=== PATIENT | female | born 1980 | race Caucasian/White ===

== ENCOUNTER 2021-01-06 00:31 | Inpatient (IN) | payer MEDICAID ==
[2021-01-06] MEDS ORDERED: Nalbuphine 10 MG/1 ML Vial IVPUSH PRN (01:13)
[2021-01-06] MEDS ORDERED: Calcium Carbonate 500 MG Tab.Chew PO PRN (01:13)
[2021-01-06] MEDS ORDERED: Ondansetron 4 MG/2 ML SDV IVPUSH PRN (01:13)
[2021-01-06] MEDS ORDERED: Sodium Chloride 0.9% 10 ML Syringe FLUSH PRN (01:13)
[2021-01-06] MEDS ORDERED: Oxytocin/Lactated Ringers 10 UNIT/1,000 ML BAG IV SCH ×2 (01:15)
[2021-01-06] MEDS: Lactated Ringers 1,000 ML IV SCH ×3 (01:30→02:44)
[2021-01-06] MEDS ORDERED: fentaNYL 100 MCG/2 ML SDV EPIDUR PRN (01:49)
[2021-01-06] MEDS ORDERED: diphenhydrAMINE 50 MG/ML SDV IVPUSH PRN (01:49)
[2021-01-06] MEDS ORDERED: ePHEDrine 50 MG/ML SDV IVPUSH PRN (01:49)
--- NOTE | 2021-01-06 02:09 | PCM.LDHP ---
L&D History of Present Illness - General Date of Service: 01/06/21 Admit Problem/Dx: Patient Status Order with Admit Dx/Problem 01/06/21 01:11 Patient Status [ADT] Routine 01/06/21 01:13 Patient Status [ADT] Routine Admission Diagnosis/Problem Admission Diagnosis/Problem Source of Information: Patient History Limitations: Reports: No Limitations - History of Present Illness Introduction:: Corin Arrington is a 40-year-old G1, P0 at 40 weeks 0 days (CHRISTOFER 01/06/2021) by an 8-week ultrasound who presents with contractions and possible rupture membranes. She is not completely certain when her water may have broken but thinks it potentially could have been in the design drafter of 01/05/2021. She had persistent mucoid discharge throughout the day of 01/05/2021. She started to have increased amounts of contractions around suppertime when they were around 10 minutes apart. She continued to have contractions throughout the evening until she went to bed when they became stronger and closer together. She is uncertain how far apart they are at this time and feels like they are occurring constantly and not really letting up. She states that it is quite painful for the contractions at this time. She reports good movement. Timing/Duration: Reports: constant/continuous (Contractions that she is uncertain how far apart they are at this time), getting worse (Reports the contractions have been getting worse since starting around 6 PM on 01/05/2021) Location, : Reports: Lower back, Pelvic, Uterus Quality: Reports: Pressure, Throbbing Severity: Severe Associated Symptoms: Reports: vaginal discharge (Mucoid and watery discharge throughout the day of 01/05/2021). Denies: vaginal bleeding Present Illness Comments:: Corin Arrington is a 40-year-old G1, P0 at 40 weeks 0 days (CHRISTOFER 01/06/2021) by a 8-week ultrasound who presents with contractions and leaking of fluid. She has had routine care with Dr. Marino starting at 8 weeks gestational age. Her has been overall uncomplicated. She received the flu shot on 08/20/2020. She did not receive Tdap during . Her was overall uncomplicated. Her is complicated by: * Advanced maternal age, negative prequel testing in early * echogenic focus noted in the left ventricle that was stable throughout the on ultrasound * pyelectasis noted on initial anatomy ultrasound with resolution on repeat ultrasound EMT P history G1: Current labs Blood type: A+ Antibody screen: Negative First trimester hematocrit/hemoglobin: 40.9%/13.3 on 06/01/2020 Platelets: 325 on 06/01/2020 Pap smear: Negative with negative HPV on 06/09/2020 Urine culture: Negative Rubella status: Immune Hepatitis B surface antigen: Negative RPR: Negative HIV: Negative Gonorrhea: Negative Chlamydia: Negative Genetic testing: Normal prequel testing Anatomy ultrasound: Overall normal anatomy ultrasound, echogenic focus in the left ventricle, stable on repeat ultrasound, borderline right pyelectasis with normal renal pelvis on repeat ultrasound, otherwise normal anatomy 40th percentile on 11/11/2020, no placenta previa One hour glucose tolerance test: 113 Second trimester hematocrit/hemoglobin: 35.4%/11.3 on 10/07/2020 Platelets: 233 on 10/07/2020 GBS status: Negative on 11/30/2020 - Related Data Allergies/Adverse Reactions: Allergies Allergy/AdvReac Type Severity Reaction Status Date / Time No Known Allergies Allergy Verified 01/06/21 02:09 Past Medical History - Past Health History Medical/Surgical History: Denies Medical/Surgical History - Past Surgical History HEENT Surgical History: Reports: None GI Surgical History: Reports: None Female Surgical History: Reports: None Social & Family History - Tobacco Use Tobacco Use Status *Q: Never Tobacco User - Tobacco Core Measures Tobacco Use/Smoking Within Last 30 Days: No Smokeless Tobacco Use in Last 30 Days: No - Alcohol Use Alcohol Use History: No - Recreational Drug Use Recreational Drug Use: No Drug Use in Last 12 Months: No - Living Situation & Occupation Living situation: Reports: Single, with Significant Other Occupation: Employed H&P Review of Systems - Review of Systems: Review Of Systems: See Below General: Denies: Fever, Chills, Malaise, Weakness, Fatigue HEENT: Denies: Headaches, Rhinitis, Post Nasal Drip, Sinus Congestion, Sore Throat, Visual Changes Pulmonary: Denies: Shortness of Breath, Wheezing, Pleuritic Chest Pain, Cough Cardiovascular: Denies: Chest Pain, Palpitations, Dyspnea on Exertion, Orthopnea Gastrointestinal: Reports: Diarrhea (With contractions that started around suppertime). Denies: Abdominal Pain, Constipation, Nausea, Vomiting Genitourinary: Denies: Dysuria, Frequency, Burning, Pain, Urgency Musculoskeletal: Reports: Back Pain (Hip and pelvic pain of ) Skin: Denies: Rash, Lesions Psychiatric: Denies: Depression, Anxiety L&D Exam - Exam Exam: See Below - OB Specific Contraction Duration (sec): 60-75 Contraction Frequency (min): 2-5 Contraction Intensity: Strong Movement: Active Heart Tones: Present Heart Tones per Min: 125 (+15 x 15 accelerations, 1 variable deceleration at 0100) Heart Rate (FHR) Variability: Moderate (6-25 bmp) Presentation: Vertex Estimated Weight: 7.5-8 lbs by Asad's - Groves Score Groves Score Cervix Position: Anterior Groves Score Consistency: Soft Groves Score Effacement: >80% (90%) Groves Score Dilation: > 5 cm (5 cm) Groves Score Infant's Station: -1 ,0 (0) Groves Score Total: 12 - Exam General: Alert, Oriented HEENT: Conjunctiva Clear, EOMI Neck: Supple, Trachea Midline Lungs: Clear to Auscultation, Normal Respiratory Effort Cardiovascular: Regular Rate, Regular Rhythm GI/Abdominal Exam: Soft, Non-Tender, No Distention, Other (Gravid). No: Guarding, Rigid, Rebound Extremities: Normal Inspection, No Pedal Edema Skin: Warm, Dry, Intact Psychiatric: Alert, Normal Affect, Normal Mood - Patient Data Lab Results Last 24 hrs: Laboratory Results - last 24 hr 01/06/21 01/06/21 Range/Units 01:00 01:27 WBC 14.34 H (3.98-10.04) K/mm3 RBC 4.23 (3.98-5.22) M/mm3 Hgb 13.2 D (11.2-15.7) gm/dl Hct 40.2 (34.1-44.9) % MCV 95.0 H (79.4-94.8) fl MCH 31.2 (25.6-32.2) pg MCHC 32.8 (32.2-35.5) g/dl RDW Std Deviation 45.3 (36.4-46.3) fL Plt Count 232 (182-369) K/mm3 MPV 10.5 (9.4-12.3) fl Neut % (Auto) 71.5 H (34.0-71.1) % Lymph % (Auto) 14.4 L (19.3-51.7) % [place] % (Auto) 12.1 (4.7-12.5) % Eos % (Auto) 1.4 (0.7-5.8) Baso % (Auto) 0.2 (0.1-1.2) % Neut # (Auto) 10.24 H (1.56-6.13) K/mm3 Lymph # (Auto) 2.07 (1.18-3.74) K/mm3 [place] # (Auto) 1.74 H (0.24-0.36) K/mm3 Eos # (Auto) 0.20 (0.04-0.36) K/mm3 Baso # (Auto) 0.03 (0.01-0.08) K/mm3 Membrane Rupture Positive H Result Diagrams: 01/06/21 01:27 - Problem List (1) 40 weeks gestation of SNOMED Code(s): 81487728 ICD Code: Z3A.40 - 40 WEEKS GESTATION OF Status: Acute Current Visit: Yes (2) Advanced maternal age, primigravida SNOMED Code(s): 95811561 ICD Code: O09.519 - SUPERVISION OF ELDERLY PRIMIGRAVIDA, UNSPECIFIED TRIMESTER Status: Acute Current Visit: Yes (3) Echogenic intracardiac focus of fetus on ultrasound SNOMED Code(s): 978034454 ICD Code: O28.3 - ABNORMAL ULTRASONIC FINDING ON SCREENING OF MOTHER Status: Acute Current Visit: Yes Problem List Initiated/Reviewed/Updated: Yes Orders Last 24hrs: Active Orders 24 hr Category Date Time Status Patient Status [ADT] Routine ADT 01/06/21 01:13 Active Activity as Tolerated [RC] PFP Care 01/06/21 01:13 Active Communication Order [RC] ASDIRECTED Care 01/06/21 01:13 Active Heart Tones [RC] ASDIRECTED Care 01/06/21 01:14 Active Non Stress Test [RC] PER UNIT ROUTINE Care 01/06/21 01:11 Active Non Stress Test [RC] PER UNIT ROUTINE Care 01/06/21 01:13 Active Notify Provider [RC] ASDIRECTED Care 01/06/21 01:49 Active Notify Provider [RC] PFP Care 01/06/21 01:13 Active Notify Provider [RC] PRN Care 01/06/21 01:13 Active Peripheral IV Care [RC] . DIRECTED Care 01/06/21 01:14 Active Vital Signs [RC] PER UNIT ROUTINE Care 01/06/21 01:11 Active Vital Signs [RC] PER UNIT ROUTINE Care 01/06/21 01:13 Active Regular Diet [DIET] Diet 01/06/21 Breakfast Active CBC WITH AUTO DIFF [HEME] Stat Lab 01/06/21 01:27 Results CORONAVIRUS COVID-19 UNIQUE [MOLEC] Stat Lab 01/06/21 01:40 Received RAPID PLASMA REAGIN,RPR [CHEM] Routine Lab 01/06/21 01:27 Received Bupivacaine/fentaNYL/NS [fentaNYL/Bupivacaine/NS 2 MCG- Med 01/06/21 01:49 Ordered 0.125% 100 ML] 100 ml EPIDUR ASDIRECTED PRN Calcium Carbonate [Tums] Med 01/06/21 01:13 Pending 1,000 mg PO Q2H PRN Lactated Ringers [Ringers, Lactated] 1,000 ml Med 01/06/21 01:15 Active IV ASDIRECTED Nalbuphine [Nubain] Med 01/06/21 01:13 Active 10 mg IVPUSH Q2H PRN Ondansetron [Zofran] Med 01/06/21 01:13 Pending 4 mg IVPUSH Q4H PRN Oxytocin/Lactated Ringers [Pitocin in LR 10 Units/1,000 Med 01/06/21 01:15 Pending ML] 10 unit in 1,000 ml IV .CONTINUOUS Oxytocin/Lactated Ringers [Pitocin in LR 10 Units/1,000 Med 01/06/21 01:15 Pe nding ML] 10 unit in 1,000 ml IV TITRATE Sodium Chloride 0.9% [Saline Flush] Med 01/06/21 01:13 Active 10 ml FLUSH ASDIRECTED PRN diphenhydrAMINE [Benadryl] Med 01/06/21 01:49 Ordered 25 mg IVPUSH Q6H PRN ePHEDrine [ePHEDrine sulfate] Med 01/06/21 01:49 Ordered 5 mg IVPUSH ASDIRECTED PRN fentaNYL [Sublimaze] Med 01/06/21 01:49 Ordered 100 mcg EPIDUR Q3H PRN Electronic Heart Tones Ext w TOCO [WOMSER] Oth 01/06/21 01:13 Ordered Routine Electronic Heart Tones Internal [WOMSER] Per Unit Oth 01/06/21 01:13 Ordered Routine Peripheral IV Insertion Adult [OM.PC] Routine Oth 01/06/21 01:13 Ordered Resuscitation Status Routine Resus Stat 01/06/21 01:13 Ordered Medication Orders Calcium Carbonate/Glycine (Tums) 1,000 mg PO Q2H PRN PRN Reason: Indigestion Diphenhydramine HCl (Benadryl) 25 mg IVPUSH Q6H PRN PRN Reason: pruritis Ephedrine Sulfate (Ephedrine Sulfate) 5 mg IVPUSH ASDIRECTED PRN PRN Reason: Hypotension Fentanyl (Sublimaze) 100 mcg EPIDUR Q3H PRN PRN Reason: Pain Fentanyl/Bupivacaine HCl (Fentanyl/Bupivacaine/Ns 2 Mcg-0.125% 100 Ml) 100 ml EPIDUR ASDIRECTED PRN PRN Reason: Pain Lactated Ringer's (Ringers, Lactated) 1,000 mls @ 100 mls/hr IV ASDIRECTED NIRU Oxytocin/Lactated Ringer's (Pitocin In Lr 10 Units/1,000 Ml) 10 unit in 1,000 mls @ 500 mls/hr IV .CONTINUOUS NIRU Oxytocin/Lactated Ringer's (Pitocin In Lr 10 Units/1,000 Ml) 10 unit in 1,000 mls @ 12 mls/hr IV TITRATE NIRU; Protocol Nalbuphine HCl (Nubain) 10 mg IVPUSH Q2H PRN PRN Reason: Pain Ondansetron HCl (Zofran) 4 mg IVPUSH Q4H PRN PRN Reason: Nausea/Vomiting Sodium Chloride (Saline Flush) 10 ml FLUSH ASDIRECTED PRN PRN Reason: Keep Vein Open Assessment/Plan Comment:: Brenda Arrington is a 40-year-old G1, P0 at 40 weeks 0 days (CHRISTOFER 01/06/2021) with spontaneous labor and spontaneous rupture membranes confirmed with positive AmniSure, complicated by advanced maternal age with normal prequel testing, echogenic focus in the left ventricle of the fetus with stable size on ultrasound and borderline pyelectasis on the right kidney with resolution on repeat ultrasound Refer to observation for spontaneous rupture of membranes Start Pitocin for augmentation of labor if she does not have cervical change after several hours Continuous monitoring Place IV and have Lactated Ringer's at 125 ml/hr May have small amounts of regular diet Activity as tolerated May have epidural as desired Plans to breast-feed after delivery Anticipate vaginal delivery unless otherwise indicated Ted Muse MD 2:19 AM 01/06/2021
[2021-01-06] MEDS: Bupivacaine/fentaNYL/NS 100 ML Bag EPIDUR PRN ×2 (02:36→10:01)
--- NOTE | 2021-01-06 02:44 | PCM.PREANE ---
Preanesthetic Assessment - Procedure Proposed Procedure: Labor Epidural - Anesthesia/Transfusion/Family Hx Anesthesia History: Prior Anesthesia Without Reaction Family History of Anesthesia Reaction: No - Review of Systems General: No Symptoms Pulmonary: No Symptoms Cardiovascular: No Symptoms Gastrointestinal: Abdominal Pain (Uterine Contractions), Nausea, Vomiting Neurological: No Symptoms Other: Reports: None - Physical Assessment Vital Signs: 99 F 130/85 93 16 98% Height: 19.81 m Weight: 69.4 kg ASA Class: 2 Mental Status: Alert & Oriented x3 Airway Class: Mallampati = 1 Dentition: Reports: Quay(s) Thyro-Mental Finger Breadths: 3 Mouth Opening Finger Breadths: 3 ROM/Head Extension: Full Lungs: Clear to Auscultation, Normal Respiratory Effort Cardiovascular: Regular Rate, Regular Rhythm - Lab Values: Laboratory Last Values WBC 14.34 K/mm3 (3.98-10.04) H 01/06/21 01:27 RBC 4.23 M/mm3 (3.98-5.22) 01/06/21 01:27 Hgb 13.2 gm/dl (11.2-15.7) D 01/06/21 01:27 Hct 40.2 % (34.1-44.9) 01/06/21 01:27 MCV 95.0 fl (79.4-94.8) H 01/06/21 01:27 MCH 31.2 pg (25.6-32.2) 01/06/21 01:27 MCHC 32.8 g/dl (32.2-35.5) 01/06/21 01:27 RDW Std Deviation 45.3 fL (36.4-46.3) 01/06/21 01:27 Plt Count 232 K/mm3 (182-369) 01/06/21 01:27 MPV 10.5 fl (9.4-12.3) 01/06/21 01:27 Neut % (Auto) 71.5 % (34.0-71.1) H 01/06/21 01:27 Lymph % (Auto) 14.4 % (19.3-51.7) L 01/06/21 01:27 [place] % (Auto) 12.1 % (4.7-12.5) 01/06/21 01:27 Eos % (Auto) 1.4 (0.7-5.8) 01/06/21 01:27 Baso % (Auto) 0.2 % (0.1-1.2) 01/06/21 01:27 Neut # (Auto) 10.24 K/mm3 (1.56-6.13) H 01/06/21 01:27 Lymph # (Auto) 2.07 K/mm3 (1.18-3.74) 01/06/21 01:27 [place] # (Auto) 1.74 K/mm3 (0.24-0.36) H 01/06/21 01:27 Eos # (Auto) 0.20 K/mm3 (0.04-0.36) 01/06/21 01:27 Baso # (Auto) 0.03 K/mm3 (0.01-0.08) 01/06/21 01:27 Manual Slide Review Normal smear 01/06/21 01:27 Membrane Rupture Positive H 01/06/21 01:00 - Allergies Allergies/Adverse Reactions: Allergies Allergy/AdvReac Type Severity Reaction Status Date / Time No Known Allergies Allergy Verified 01/06/21 02:09 - Acknowledgements Anesthesia Type Planned: Epidural Pt an Appropriate Candidate for the Planned Anesthesia: Yes Alternatives and Risks of Anesthesia Discussed w Pt/Guardian: Yes Pt/Guardian Understands and Agrees with Anesthesia Plan: Yes PreAnesthesia Questionnaire - Past Health History Medical/Surgical History: Denies Medical/Surgical History - Past Surgical History HEENT Surgical History: Reports: None GI Surgical History: Reports: None Female Surgical History: Reports: None - SUBSTANCE USE Tobacco Use Status *Q: Never Tobacco User Recreational Drug Use History: No - CURRENT (IN HOUSE) MEDS Current Meds: Current Medications Calcium Carbonate/Glycine (Tums) 1,000 mg PO Q2H PRN PRN Reason: Indigestion Diphenhydramine HCl (Benadryl) 25 mg IVPUSH Q6H PRN PRN Reason: pruritis Ephedrine Sulfate (Ephedrine Sulfate) 5 mg IVPUSH ASDIRECTED PRN PRN Reason: Hypotension Fentanyl (Sublimaze) 100 mcg EPIDUR Q3H PRN PRN Reason: Pain Last Admin: 01/06/21 02:34 Dose: 100 mcg Documented by: Fentanyl/Bupivacaine HCl (Fentanyl/Bupivacaine/Ns 2 Mcg-0.125% 100 Ml) 100 ml EPIDUR ASDIRECTED PRN PRN Reason: Pain Last Admin: 01/06/21 02:36 Dose: 100 ml Documented by: Lactated Ringer's (Ringers, Lactated) 1,000 mls @ 100 mls/hr IV ASDIRECTED NIRU Last Admin: 01/06/21 02:33 Dose: 100 mls/hr Documented by: Oxytocin/Lactated Ringer's (Pitocin In Lr 10 Units/1,000 Ml) 10 unit in 1,000 m ls @ 500 mls/hr IV .CONTINUOUS NIRU Oxytocin/Lactated Ringer's (Pitocin In Lr 10 Units/1,000 Ml) 10 unit in 1,000 mls @ 12 mls/hr IV TITRATE NIRU; Protocol Nalbuphine HCl (Nubain) 10 mg IVPUSH Q2H PRN PRN Reason: Pain Ondansetron HCl (Zofran) 4 mg IVPUSH Q4H PRN PRN Reason: Nausea/Vomiting Sodium Chloride (Saline Flush) 10 ml FLUSH ASDIRECTED PRN PRN Reason: Keep Vein Open
[2021-01-06] MEDS ORDERED: Bupivacaine 0.25% 10 ML SDV ONE (11:00)
--- NOTE | 2021-01-06 11:58 | PCM.SN.2 ---
- Free Text/Narrative Note: Stage I - Patient presented in active labor. SROM at 0630 on 01.05.2021. Epidural anesthesia. Progressed to complete with overall reassuring heart tones. Stage II - of viable female, 7#9oz, 06/14 at 1112. Head delivered in controlled manner over intact perineum. Body and shoulders atraumatically. To maternal abdomen. Cord clamped and cut at 1 minute of life. Positive cry. Cord blood collected. Stage III - of intact placenta. 3vc. Second degree laceration repaired with 3-0 vicryl. EBL 250.
[2021-01-06] MEDS ORDERED: Benzocaine/Menthol 20%-0.5% Spray 56 GM Canister TOP PRN (13:07)
[2021-01-06] MEDS ORDERED: Witch Hazel Medicated Pads 40/Jar TOP PRN (13:07)
[2021-01-06] MEDS: Ibuprofen 600 MG Tab PO PRN ×2 (13:47→22:21)
[2021-01-06] MEDS: Docusate Sodium 100 MG Cap PO PRN (20:59)
--- NOTE | 2021-01-07 02:51 | PCM.DCSUM1 ---
Discharge Summary - Hospital Course Diagnosis: Stroke: No - Discharge Data Discharge Date: 01/07/21 Discharge Disposition: Home, Self-Care 01 Condition: Good - Referral to Home Health Primary Care Physician: Jeovany Marino MD - Patient Summary/Data Hospital Course: Stage I - Patient presented in active labor. SROM at 0630 on 01.05.2021. Epidural anesthesia. Progressed to complete with overall reassuring heart tones. Stage II - of viable female, 7#9oz, 8/9 at 1112. Head delivered in controlled manner over intact perineum. Body and shoulders atraumatically. To maternal abdomen. Cord clamped and cut at 1 minute of life. Positive cry. Cord blood collected. Stage III - of intact placenta. 3vc. Second degree laceration repaired with 3-0 vicryl. EBL 250. - Patient Instructions Diet: Usual Diet as Tolerated Activity: No Strenuous Activities Activity, Other: pelvic rest Driving: May Drive Today Showering/Bathing: May Shower Notify Provider of: Fever, Increased Pain, Swelling and Redness, Drainage, Nausea and/or Vomiting - Discharge Plan *PRESCRIPTION DRUG MONITORING PROGRAM REVIEWED*: No *COPY OF PRESCRIPTION DRUG MONITORING REPORT IN PATIENT THADDEUS: No Home Medications: Home Meds Cholecalciferol (Vitamin D3) [Vitamin D3] 1 tab PO DAILY 01/06/21 [History] [place]-3/DHA/Epa/Fish Oil [Fish Oil 500 MG Softgel] 500 mg PO DAILY 01/06/21 [History] Vits #93/Iron Fum/FA [ Formula Tablet] 1 tab PO DAILY 01/06/21 [History] Psyllium Husk [Metamucil] 1 each PO 01/06/21 [History] Referrals: Jeovany Marino MD [Primary Care Provider] - (2 weeks, 6 weeks) - Discharge Summary/Plan Comment DC Time >30 min.: No - General Info Date of Service: 01/07/21 Functional Status: Reports: Pain Controlled - Review of Systems General: Reports: No Symptoms HEENT: Reports: No Symptoms Pulmonary: Reports: No Symptoms Cardiovascular: Reports: No Symptoms Gastrointestinal: Reports: No Symptoms Genitourinary: Reports: No Symptoms Musculoskeletal: Reports: No Symptoms Skin: Reports: No Symptoms Neurological: Reports: No Symptoms Psychiatric: Reports: No Symptoms - Patient Data Vitals - Most Recent: Last Vital Signs Temp 36.9 C 01/06/21 20:36 Pulse 74 01/06/21 20:36 Resp 16 01/06/21 20:36 BP 92/64 01/06/21 20:36 Pulse Ox 94 L 01/06/21 20:36 Weight - Most Recent: 69.4 kg I&O - Last 24 hours: Intake & Output 01/06/21 01/06/21 01/07/21 14:59 22:59 06:59 Intake Total 5000 Output Total 1330 Balance 3670 Lab Results - Last 24 hrs: Laboratory Results - last 24 hr 01/06/21 01/06/21 Range/Units 01:27 01:40 RPR Non-reactive (NONREACTIVE) SARS-CoV-2 RNA (UNIQUE) Negative (NEGATIVE) Med Orders - Current: Current Medications Benzocaine/Menthol (Dermoplast Pain Relief [place]) 0 gm TOP ASDIRECTED PRN PRN Reason: Perineal Comfort Measure Last Admin: 01/06/21 13:47 Dose: 1 can Documented by: Docusate Sodium (Colace) 100 mg PO DAILY PRN PRN Reason: Constipation Last Admin: 01/06/21 20:59 Dose: 100 mg Documented by: Ibuprofen (Motrin) 600 mg PO Q6H PRN PRN Reason: Mild pain or fever Last Admin: 01/06/21 22:21 Dose: 600 mg Documented by: [facility] pad TOP ASDIRECTED PRN PRN Reason: Pain Last Admin: 01/06/21 13:47 Dose: 1 container Documented by: Discontinued Medications Bupivacaine HCl (Sensorcaine-Mpf 0.25%) 10 ml .ROUTE .STK-MED ONE Stop: 01/06/21 11:01 Calcium Carbonate/Glycine (Tums) 1,000 mg PO Q2H PRN PRN Reason: Indigestion Diphenhydramine HCl (Benadryl) 25 mg IVPUSH Q6H PRN PRN Reason: pruritis Ephedrine Sulfate (Ephedrine Sulfate) 5 mg IVPUSH ASDIRECTED PRN PRN Reason: Hypotension Fentanyl (Sublimaze) 100 mcg EPIDUR Q3H PRN PRN Reason: Pain Last Admin: 01/06/21 02:34 Dose: 100 mcg Documented by: Fentanyl/Bupivacaine HCl (Fentanyl/Bupivacaine/Ns 2 Mcg-0.125% 100 Ml) 100 ml EPIDUR ASDIRECTED PRN PRN Reason: Pain Last Admin: 01/06/21 10:01 Dose: 100 ml Documented by: Lactated Ringer's (Ringers, Lactated) 1,000 mls @ 100 mls/hr IV ASDIRECTED NIRU Last Admin: 01/06/21 02:44 Dose: 100 mls/hr Documented by: Oxytocin/Lactated Ringer's (Pitocin In Lr 10 Units/1,000 Ml) 10 unit in 1,000 mls @ 500 mls/hr IV .CONTINUOUS NIRU Last Admin: 01/06/21 12:09 Dose: 999 mls/hr Documented by: Oxytocin/Lactated Ringer's (Pitocin In Lr 10 Units/1,000 Ml) 10 unit in 1,000 mls @ 12 mls/hr IV TITRATE NIRU; Protocol Last Titration: 01/06/21 11:13 Dose: 166.5 munits/min, 999 mls/hr Documented by: Nalbuphine HCl (Nubain) 10 mg IVPUSH Q2H PRN PRN Reason: Pain Ondansetron HCl (Zofran) 4 mg IVPUSH Q4H PRN PRN Reason: Nausea/Vomiting Sodium Chloride (Saline Flush) 10 ml FLUSH ASDIRECTED PRN PRN Reason: Keep Vein Open - Exam General: Reports: Alert, Oriented HEENT: Reports: Pupils Equal, Pupils Reactive, EOMI, Mucous Membr. Moist/[place] Lungs: Reports: Normal Respiratory Effort Cardiovascular: Reports: Regular Rate, Regular Rhythm GI/Abdominal Exam: Soft, Non-Tender Extremities: Normal Inspection, Normal Range of Motion Skin: Reports: Warm, Dry Wound/Incisions: Reports: Healing Well Neurological: Reports: No New Focal Deficit Psy/Mental Status: Reports: Alert, Normal Affect, Normal Mood
--- NOTE | 2021-01-07 04:24 | PCM.PNPP ---
- General Info Date of Service: 01/07/21 Functional Status: Reports: Pain Controlled - Review of Systems General: Reports: No Symptoms HEENT: Reports: No Symptoms Pulmonary: Reports: No Symptoms Cardiovascular: Reports: No Symptoms Gastrointestinal: Reports: No Symptoms Genitourinary: Reports: No Symptoms Musculoskeletal: Reports: No Symptoms Skin: Reports: No Symptoms Neurological: Reports: No Symptoms Psychiatric: Reports: No Symptoms - General Info Date of Service: 01/07/21 - Patient Data Vital Signs - Most Recent: Last Vital Signs Temp 36.9 C 01/06/21 20:36 Pulse 74 01/06/21 20:36 Resp 16 01/06/21 20:36 BP 92/64 01/06/21 20:36 Pulse Ox 94 L 01/06/21 20:36 Weight - Most Recent: 69.4 kg I&O - Last 24 Hours: Intake & Output 01/06/21 01/06/21 01/07/21 14:59 22:59 06:59 Intake Total 5000 Output Total 1330 Balance 3670 Lab Results - Last 24 Hours: Laboratory Results - last 24 hr 01/06/21 Range/Units 01:27 RPR Non-reactive (NONREACTIVE) Med Orders - Current: Current Medications Benzocaine/Menthol (Dermoplast Pain Relief Eleele) 0 gm TOP ASDIRECTED PRN PRN Reason: Perineal Comfort Measure Last Admin: 01/06/21 13:47 Dose: 1 can Documented by: Docusate Sodium (Colace) 100 mg PO DAILY PRN PRN Reason: Constipation Last Admin: 01/06/21 20:59 Dose: 100 mg Documented by: Ibuprofen (Motrin) 600 mg PO Q6H PRN PRN Reason: Mild pain or fever Last Admin: 01/06/21 22:21 Dose: 600 mg Documented by: Rodney Garcia (Tucks) 1 pad TOP ASDIRECTED PRN PRN Reason: Pain Last Admin: 01/06/21 13:47 Dose: 1 container Documented by: Discontinued Medications Bupivacaine HCl (Sensorcaine-Mpf 0.25%) 10 ml .ROUTE .STK-MED ONE Stop: 01/06/21 11:01 Calcium Carbonate/Glycine (Tums) 1,000 mg PO Q2H PRN PRN Reason: Indigestion Diphenhydramine HCl (Benadryl) 25 mg IVPUSH Q6H PRN PRN Reason: pruritis Ephedrine Sulfate (Ephedrine Sulfate) 5 mg IVPUSH ASDIRECTED PRN PRN Reason: Hypotension Fentanyl (Sublimaze) 100 mcg EPIDUR Q3H PRN PRN Reason: Pain Last Admin: 01/06/21 02:34 Dose: 100 mcg Documented by: Fentanyl/Bupivacaine HCl (Fentanyl/Bupivacaine/Ns 2 Mcg-0.125% 100 Ml) 100 ml EPIDUR ASDIRECTED PRN PRN Reason: Pain Last Admin: 01/06/21 10:01 Dose: 100 ml Documented by: Lactated Ringer's (Ringers, Lactated) 1,000 mls @ 100 mls/hr IV ASDIRECTED NIRU Last Admin: 01/06/21 02:44 Dose: 100 mls/hr Documented by: Oxytocin/Lactated Ringer's (Pitocin In Lr 10 Units/1,000 Ml) 10 unit in 1,000 mls @ 500 mls/hr IV .CONTINUOUS NIRU Last Admin: 01/06/21 12:09 Dose: 999 mls/hr Documented by: Oxytocin/Lactated Ringer's (Pitocin In Lr 10 Units/1,000 Ml) 10 unit in 1,000 mls @ 12 mls/hr IV TITRATE NIRU; Protocol Last Titration: 01/06/21 11:13 Dose: 166.5 munits/min, 999 mls/hr Documented by: Nalbuphine HCl (Nubain) 10 mg IVPUSH Q2H PRN PRN Reason: Pain Ondansetron HCl (Zofran) 4 mg IVPUSH Q4H PRN PRN Reason: Nausea/Vomiting Sodium Chloride (Saline Flush) 10 ml FLUSH ASDIRECTED PRN PRN Reason: Keep Vein Open - Infant Interaction Support Person: Significant Other - Recovery Exam Fundal Tone: Firm Fundal Level: 1 Fingerbreadths Below Umbilicus Fundal Placement: Midline Lochia Amount: Small Lochia Color: Rubra/Red Perineum Description: Other (see below) Other Perinuem Description: 2nd degree laceration with repair Episiotomy/Laceration: Approximated Bladder Status: Voiding Urinary Elimination: Voided - Exam General: Alert, Oriented HEENT: Pupils Equal Neck: Supple Lungs: Clear to Auscultation, Normal Respiratory Effort Cardiovascular: Regular Rate, Regular Rhythm GI/Abdominal Exam: Normal Bowel Sounds, Soft, Non-Tender, No Organomegaly, No Distention, No Abnormal Bruit, No Mass, Pelvis Stable Extremities: Normal Inspection, Normal Range of Motion, Non-Tender, No Pedal Edema, Normal Capillary Refill Wound/Incisions: Healing Well Neurological: No New Focal Deficit Psy/Mental Status: Alert, Normal Affect, Normal Mood - Problem List Review Problem List Initiated/Reviewed/Updated: Yes - My Orders Last 24 Hours: My Active Orders 01/06/21 13:07 Benzocaine/Menthol [Dermoplast Pain Relief Eleele] See Dose Instructions TOP ASDIRECTED PRN Ibuprofen [Motrin] 600 mg PO Q6H PRN witch Patricia [Tucks] 1 pad TOP ASDIRECTED PRN Heat Therapy [OM.PC] PRN 01/06/21 13:07 Activity as Tolerated [RC] PER UNIT ROUTINE Vital Signs [RC] 03,,,21 Assess Lochia [WOMSER] Per Unit Routine Assess Uterine Involution [WOMSER] Per Unit Routine Breast Pump [WOMSER] Per Unit Routine Medication Administration Instruction [OM.PC] Routine Perineal Care [OM.PC] Per Unit Routine Sitz Bath [OM.PC] Per Unit Routine 01/06/21 20:32 Docusate Sodium [Colace] 100 mg PO DAILY PRN 01/07/21 13:07 Heat Therapy [OM.PC] PRN Term labor. Doing well Breast feeding going well Desires to stay and be discharged on PPD1 - Plan Plan:: Brenda Arrington is a 40-year-old G1, P0 at 40 weeks 0 days ([facility] 01/06/2021) with spontaneous labor and spontaneous rupture membranes confirmed with positive AmniSure, complicated by advanced maternal age with normal prequel testing, echogenic focus in the left ventricle of the fetus with stable size on ultrasound and borderline pyelectasis on the right kidney with resolution on repeat ultrasound Doing well. Discharge tomorrow. Assist with today. Discharge tomorrow.
[2021-01-07] MEDS: Ibuprofen 600 MG Tab PO PRN ×3 (08:31→20:37)
--- NOTE | 2021-01-07 08:31 | PCM48HPAN ---
Post Anesthesia Note - EVALUATION WITHIN 48HRS OF ANESTHETIC Vital Signs in Normal Range: Yes Patient Participated in Evaluation: Yes Respiratory Function Stable: Yes Airway Patent: Yes Cardiovascular Function Stable: Yes Hydration Status Stable: Yes Pain Control Satisfactory: Yes Nausea and Vomiting Control Satisfactory: Yes Mental Status Recovered: Yes Vital Signs: Last Vital Signs Temp 36.8 C 01/07/21 04:23 Pulse 75 01/07/21 04:23 Resp 16 01/07/21 04:23 BP 133/89 01/07/21 04:23 Pulse Ox 99 01/07/21 04:23
[2021-01-07] MEDS: Docusate Sodium 100 MG Cap PO PRN ×2 (08:32→20:40)
[2021-01-07] MEDS ORDERED: Polyethylene Glycol 3350 Powder 17 GM Packet PO PRN (19:41)
[2021-01-08] MEDS: Ibuprofen 600 MG Tab PO PRN ×2 (03:54→10:06)
[2021-01-08] MEDS ORDERED: Diphtheria,Pertussis(Acell),Tetanus Vaccine 0.5 ML Syringe IM ONE (12:45)
[2021-01-08] MEDS: Docusate Sodium 100 MG Cap PO PRN (13:46)
== END 2021-01-08 14:10 | disposition home or self-care (01) | DRG 806 ==
LOC: JD.OB 00:31 → JD.OBCHECK 00:31 → JD.OB 01:13 → OBSVTOIN 11:12 → JD.OB 11:13
PROVIDERS: ADMIT Obstetrics & Gynecology; ATTEND Obstetrics & Gynecology
PROC: 10E0XZZ Delivery of Products of Conception, External Approach (ICD-10-PCS; principal; 2021-01-06)
PROC: 0KQM0ZZ Repair Perineum Muscle, Open Approach (ICD-10-PCS; 2021-01-06)
PROC: 3E0R3BZ Introduction of Anesthetic Agent into Spinal Canal, Percutaneous Approach (ICD-10-PCS; 2021-01-06)
DX: O48.0 Post-term pregnancy (principal); N13.30 Unspecified hydronephrosis; Z37.0 Single live birth; Z3A.40 40 weeks gestation of pregnancy; O70.1 Second degree perineal laceration during delivery; O76 Abnormality in fetal heart rate and rhythm complicating labor and delivery; O99.892 Other specified diseases and conditions complicating childbirth; Z20.822 Contact with and (suspected) exposure to COVID-19
CPT/HCPCS: 01967; 36415; 51702; 59025; 59409; 84112; 85025; 86592; 90471; 90715; A9270-GY; J2590; J3010; J3490; J7120; U0002

== ENCOUNTER 2024-06-27 09:18 | Inpatient (IN) | payer SELFPAY ==
[2024-06-27] MEDS ORDERED: Sodium Chloride 0.9% 10 ML Syringe FLUSH PRN (12:24)
[2024-06-27] MEDS ORDERED: Nalbuphine 10 MG/1 ML Vial IVPUSH PRN (12:24)
[2024-06-27] MEDS ORDERED: Lidocaine 1% 50 ML MDV INJECT PRN (12:24)
[2024-06-27] MEDS ORDERED: Oxytocin/0.9 % Sodium Chloride 30 UNIT/500 ML BAG IV SCH (12:24)
[2024-06-27 12:39] LABS: BASOPHILS ABSOLUTE AUTO 0.1 K/mm3 (0.0-0.2); BASOPHILS PERCENT AUTO 0.5 % (0.0-1.0); EOSINOPHILS ABSOLUTE AUTO 0.1 K/mm3 (0.0-0.4); EOSINOPHILS PERCENT AUTO 0.7 % (0.0-6.0); HEMATOCRIT 38.1 % (37.0-47.0); HEMOGLOBIN 12.9 gm/dl (12.0-16.0); IMMATURE GRAN ABSOLUTE AUTO 0.07 K/mm3 (0.00-0.05); IMMATURE GRAN PERCENT AUTO 0.7 % (0.0-0.4); LYMPHOCYTES PERCENT AUTO 20.9 % (24.0-44.0); MEAN CORPUSCULAR HEMOGLOBIN 31.5 pg (28.0-32.0); MEAN CORPUSCULAR HGB CONC 33.9 g/dl (32.0-36.0); MEAN CORPUSCULAR VOLUME 92.9 fl (83.0-99.0); MEAN PLATELET VOLUME 11.3 fl (9.4-12.3); MONOCYTES ABSOLUTE AUTO 0.6 K/mm3 (0.0-0.8); MONOCYTES PERCENT AUTO 6.5 % (0.0-8.0); NEUTROPHILS ABSOLUTE AUTO 6.8 K/mm3 (1.8-7.7); NEUTROPHILS PERCENT AUTO 70.7 % (41.0-71.0); PLATELET COUNT,PLT 179 K/mm3 (150-400); WHITE BLOOD CELL COUNT,WBC 9.64 K/mm3 (3.9-11.3)
[2024-06-27] MEDS: Lactated Ringers 1,000 ML IV SCH (15:14)
[2024-06-27] MEDS: Oxytocin/0.9 % Sodium Chloride 30 UNIT/500 ML BAG IV SCH (15:14)
[2024-06-27] MEDS ORDERED: diphenhydrAMINE 50 MG/ML SDV IVPUSH PRN (18:11)
[2024-06-27] MEDS: Bupivacaine/fentaNYL/NS 100 ML Bag EPIDUR PRN (19:32)
[2024-06-27] MEDS: ePHEDrine 50 MG/ML SDV IVPUSH PRN (20:22)
[2024-06-28] MEDS ORDERED: Oxytocin/Lactated Ringers 30 UNIT/500 ML BAG IV SCH (01:27)
[2024-06-28] MEDS ORDERED: Magnesium Hydroxide 400 MG/5 ML Susp 30 ML Cup PO PRN (01:27)
[2024-06-28] MEDS ORDERED: Hydrocortisone Acetate 25 MG Supp RECTAL PRN (01:27)
[2024-06-28] MEDS: Ibuprofen 600 MG Tab PO SCH (02:37)
[2024-06-28] MEDS: Witch Hazel Medicated Pads 40/Jar TOP PRN (03:52)
[2024-06-28] MEDS: Benzocaine/Menthol 20%-0.5% Spray 78 GM Cannister TOP PRN (03:53)
[2024-06-28] MEDS: Sodium Chloride 0.9% 10 ML Syringe FLUSH SCH (08:20)
[2024-06-28] MEDS: Prenatal Multivitamin with Calcium/Folic Acid/Iron Tab PO SCH (08:36)
[2024-06-28] MEDS: Acetaminophen 325 MG Tab PO PRN (11:59)
[2024-06-28] MEDS: Docusate Sodium 100 MG Cap PO PRN (11:59)
== END 2024-06-29 13:50 | disposition home or self-care (01) | DRG 807 ==
LOC: JD.OBCHECK 09:18 → JD.OB 09:25 → JD.OBCHECK 11:31 → JD.OB 11:32 → OBSVTOIN 23:27 → JD.OB 23:28
PROVIDERS: ADMIT Obstetrics & Gynecology; ATTEND Obstetrics & Gynecology
PROC: 10E0XZZ Delivery of Products of Conception, External Approach (ICD-10-PCS; principal; 2024-06-27)
PROC: 0KQM0ZZ Repair Perineum Muscle, Open Approach (ICD-10-PCS; 2024-06-27)
PROC: 3E0R3BZ Introduction of Anesthetic Agent into Spinal Canal, Percutaneous Approach (ICD-10-PCS; 2024-06-27)
PROC: 00HU33Z Insertion of Infusion Device into Spinal Canal, Percutaneous Approach (ICD-10-PCS; 2024-06-27)
DX: O42.02 Full-term premature rupture of membranes, onset of labor within 24 hours of rupture (principal); Z37.0 Single live birth; Z3A.38 38 weeks gestation of pregnancy; O70.1 Second degree perineal laceration during delivery; O69.81X0 Labor and delivery complicated by cord around neck, without compression, not applicable or unspecified; O76 Abnormality in fetal heart rate and rhythm complicating labor and delivery
CPT/HCPCS: 36415; 51701; 59409; 84112; 85025; 86592; A9270-GY; C1758; J3490; J7120; J7999

== ENCOUNTER 2025-10-11 10:37 | Emergency (ER) | payer BC ==
[2025-10-11 11:13] LABS: APPEARANCE,URINE CLEAR (Clear); GLUCOSE,URINE NEGATIVE (Negative); OCCULT BLOOD,URINE NEGATIVE (Negative)
[2025-10-11 11:21] LABS: EPITHELIAL CELLS,URINE 0-5 /hpf (0-5)
== END 2025-10-11 12:19 | disposition home or self-care (01) ==
LOC: EEVIPCON 10:37 → JD.ED 10:37
DX: O98.812 Other maternal infectious and parasitic diseases complicating pregnancy, second trimester (principal); B37.31 Acute candidiasis of vulva and vagina; B37.41 Candidal cystitis and urethritis; Z79.899 Other long term (current) drug therapy; Z3A.18 18 weeks gestation of pregnancy
CPT/HCPCS: 81001; 81515; 87086; 99283; 99284